=== PATIENT | female | born 1965 | race Two or more races ===

== ENCOUNTER 2024-08-28 21:47 | Inpatient (IN) | payer MEDICAID, SELFPAY ==
[2024-08-28 21:53] VITALS: PULSE 124; RESP 22; TEMP 39.4; O2SAT 90; BMI 40.6
[2024-08-28 22:15] VITALS: BP 134/81; PULSE 105; RESP 18; TEMP 38.6; O2SAT 94
--- NOTE | 2024-08-28 22:23 | PD.EDABDPN ---
ED Abdominal Pain RME/HPI General Chief Complaint: Abdominal Pain Stated complaint: ABD PAIN, CONSTIPATED Time seen by provider: 08/28/24 22:37 Arrival date/time: 08/28/24 21:47 RME / HPI RME / HPI narrative: Dr. Mcduffie?s Main ED Evaluation: 59yo female presents to the ED for complaints of lower abdominal and back pain x 1600 today. Patient states she was diagnosed with a UTI and started taking Bactrim 2 days ago. Today, she started having significant lower abdominal and back pain that got progressively worse. She reports associated subjective fever, chills, headache, nausea, and shortness of breath. Patient denies any vomiting, cough or any other associated symptoms. She did not take any antipyretics at home. Related Data Previous Rx's ?Medication ?Instructions ?Recorded levothyroxine 200 mcg capsule 200 mcg PO QDAY #30 caps 07/15/18 naproxen 500 mg tablet,delayed 500 mg PO BID PRN pain #14 tabs 03/23/22 release (EC-Naprosyn) tamsulosin 0.4 mg capsule (Flomax) 0.4 mg PO QDAY #14 caps 03/23/22 Allergies Allergy/AdvReac Type Severity Reaction Status Date / Time codeine Allergy Mild Rash Verified 08/28/24 21:48 Review of Systems Review of Systems Systems Reviewed: All systems reviewed, normal except as documented Past Medical History Past Medical History NEUROLOGIC: Negative Neurological Disorders or Seizures CARDIAC: Positive Hypertension; Negative Cardiac Disorders or Congestive Heart Failure RESPIRATORY: Positive Asthma; Negative Chronic Obstructive Pulmonary Disease (COPD) GASTROINTESTINAL: Positive Gall Bladder Disease, Diverticulitis and Obesity; Negative Gastrointestinal Disorders GENITOURINARY: Negative Genitourinary Disorders or Renal Disease REPRODUCTIVE: Positive Previous Pregnancies MUSCULOSKELETAL: Negative Musculoskeletal Disorders ENDOCRINE: Positive Hypothyroidism; Negative Diabetes Mellitus Type 1 or Diabetes Mellitus Type 2 HEMATOLOGIC: Negative Blood Disorders, Anemia or Sickle Cell Disease OTHER HISTORY: Negative Hospitalization, Falls, Blood Transfusions, Anesthesia Reactions or Cancer Family History FAMILY HISTORY: Positive Family Cancer (both parents) Surgical History SURGICAL: Positive Abdominal Surgery and Hysterectomy Social History SMOKING STATUS: Never smoker SECOND HAND EXPOSURE: No SUBSTANCE USE: does not use ED Exam Narrative Physical exam: GENERAL APPEARANCE: alert and oriented x 4, well-developed, well-nourished, no acute distress VITALS: All vitals were reviewed and the pulse ox is 94% on room air, which is slightly hypoxic according to my interpretation. HEENT: Normocephalic, atraumatic; pupils equal, round, reactive to light; EOMI; mucous membranes pink, moist; oropharynx clear NECK: Supple LUNGS: CTABL; no wheezes, no rales, no rhonchi HEART: Regular rate, regular rhythm; normal S1, S2; no murmurs ABDOMEN: non distended; normal BS; soft, no tenderness, no guarding, no rebound; no masses, no organomegaly, no hernia BACK: no CVA tenderness EXTREMITIES: atraumatic; no edema NEUROLOGIC: awake; alert and oriented x4; cranial nerves II-XII grossly intact; no focal sensory or motor deficits PSYCHIATRIC: appropriate mood and affect SKIN: warm, dry, normal color; no rashes Course Course Course Narrative: 2157: Sepsis alert initiated. Orders made at this time are congruent with ED Adult Sepsis Order List. Re-evaluation is to be completed. CXR is ordered for determining the etiology of fever. 0002: NS IVF infused. 0032: Sepsis reassessment performed consisting of lab review, vitals, physical exam including auscultation of heart, lungs, and visual evaluation of capillary refills, mucosal membranes and extremities. Patient met SIRS criteria however lactic, WBC, and pro zechariah are all within normal range. Reassessment complete, patient is not septic. Quality Measures Possible source: GI tract/intra-abdominal Blood cultures ordered: yes Antibiotic ordered: Yes Pertinent labs: 08/28/24 22:15 Lactic Acid 1.9 mMol/L (0.4-2.0) Procalcitonin 0.04 ng/ml (0.0-0.49) sepsis Orders Category Date Time Status Bedside COVID-19 Antigen Test NOW Care 08/28/24 22:37 Active Bedside Influenza A&B Antigen Test NOW Care 08/28/24 22:[address] Screening NOW Care 08/29/24 01:56 Active Senior [employer] NOW Care 08/28/24 22:37 Active EKG (ED ONLY) *Do not use* NOW Care 08/28/24 22:[address] abdomen pelvis w con Stat Exams 08/29/24 01:56 Taken EKG (ED Only) Stat Exams 08/28/24 22:37 Draft XR chest 1V portable Stat Exams 08/28/24 22:37 Completed B-Type Natriuretic Peptide Stat Lab 08/28/24 22:15 Completed Blood Culture (Lab) Stat Lab 08/28/24 23:10 Received CBC Stat Lab 08/28/24 22:15 Completed Comprehensive Metabolic Panel Stat Lab 08/28/24 22:15 Completed Lactate (Lactic Acid) Stat Lab 08/28/24 22:15 Completed Lipase Stat Lab 08/28/24 22:15 Completed Magnesium Stat Lab 08/28/24 22:15 Completed Partial Thromboplastin Time Stat Lab 08/28/24 22:15 Completed Procalcitonin Stat Lab 08/28/24 22:15 Completed Prothrombin Time with INR Stat Lab 08/28/24 22:15 Completed Troponin I Stat Lab 08/28/24 22:15 Completed Urinalysis Stat Lab 08/28/24 22:55 Completed Urine Culture Stat Lab 08/28/24 22:55 Received Acetaminophen Tab [Tylenol Tab] Med 08/28/24 22:37 Discontinued 650 mg PO X1 ONE CIPROFLOXACIN/D5w 400 MG IVPB [Cipro Ivpb] Med 08/29/24 03:08 Ordered 400 mg in 200 ml IV X1 Sodium Chloride 0.9% 1000 ml [Ns] 1,000 ml Med 08/28/24 22:37 Discontinued IV 999 mls/hr cefTRIAXone/D5w 1gm IV premix [Rocephin/D5w 1gm IV Med 08/28/24 22:42 Discontinued premix] 1 gm in 50 ml IV X1 metroNIDAZOLE/NS 500 MG IVPB [Flagyl 500 mg IV] 100 ml Med 08/29/24 03:08 Ordered IV X1 Vital Signs Vital signs: Vital Signs Temperature 103.0 F H 08/28/24 21:53 Pulse Rate 124 H 08/28/24 21:53 Respiratory Rate 22 H 08/28/24 21:53 Pulse Oximetry (%) 90 L 08/28/24 21:53 Oxygen Delivery Method Room Air 08/28/24 21:53 Abdominal Pain MDM MDM Narrative MDM Narrative:: Scribe Attestation: 08/28/24 Judy Snell am scribing for and in the presence of Dr. Mcduffie. Patient data External records reviewed:: [facility] previous records (Per chart review, patient was seen here on 03/23/22 for kidney stone. ) Clinical information provided by:: patient Social determinants that could affect healthcare access:: none Patient has the following chronic illnesses:: HTN, hypothyroidism How is presenting disease/condition affected by chronic disease/condition?: uneffected by Evaluation data The following diagnostics were reviewed and interpreted by me:: lab results, radiology exam(s) and EKG tracing(s) Lab and/or radiology exams considered but not ordered:: none Interpretation Summary: CBC normal, PT/INR/PTT normal, CMP normal, Lactic Acid normal, Magnesium normal, Troponin normal, BNP normal, Lipase normal, Procalcitonin normal,, UA negative for UTI. EKG done at 2358, NSR, rate of 91, mild IVCD, flattening ST segments in diffuse leads, poor R wave progression, according to my interpretation. [place] [facility] Report Signed Patient: MIGUEL ANGEL SHAH [facility]. Record#: [id number] Birthdate: 1965 Age/Sex: 59 / F Location: [facility] Attending Dr: Ordering Physician: Yamel Mcduffie MD Date of Service: 08/28/24 Procedure(s): XR chest 1V portable Accession Number(s): [id number] cc: Nakul Roberts MD; Yamel Mcduffie MD~ Examination: AP chest single view Technique one AP portable upright chest single view Date and time: August 28, 2024 1058 hours INDICATIONS: Chest pain shortness of breath beginning today. FINDINGS: Normal heart size. Lungs are clear. The osseous structures are intact. IMPRESSION: No active disease. Dictated By: Nakul Roberts MD Signed By: <Electronically signed by Nakul Roberts MD in OV> 08/28/24 2311 [place] Preliminary Report Draft Patient: MIGUEL ANGEL SHAH [facility]. Record#: [id number] Birthdate: 1965 Age/Sex: 59 / F Location: [facility] Attending Dr: Ordering Physician: Date of Service: Procedure(s): Accession Number(s): cc: ~ CT scan of the abdomen and pelvis with intravenous contrast (axial sections with sagittal and coronal reformats) August 29, 2024 0218 hours Clinical History: lower abdominal pain, fever Comparison: Compared with the prior study dated March 23, 2022. Findings: The lung bases are clear. The liver, pancreas, spleen and adrenals are unremarkable. The gallbladder is surgically absent. Multiple renal parapelvic cysts are seen bilaterally. There is a 1 cm parenchymal cyst ofthe left kidney. A few subcentimeter hypodensities are noted in both kidneys, too small to characterize. There is no evidence of renal/ureteric/vesical calculus or hydroureteronephrosis. Nonspecific perinephric fat stranding is noted bilaterally. A small hiatal hernia is present. There is a 1.5 cm duodenal diverticulum. No evidence of bowel obstruction. The appendix is within normal limits (image 91/142). Multiple colonic diverticula are seen. There is moderate wall thickening of the proximal sigmoid colon and pericolonic fat stranding, suggesting diverticulitis. There is no free air or abscess. Trace intraperitoneal free fluid is seen in the left paracolic gutter. There is no mesenteric or retroperitoneal adenopathy. The urinary bladder is unremarkable. The uterus is surgically absent. There is a small uncomplicated fat-containing umbilical hernia. Osseous degenerative changes are noted. Impression: 1. Moderate wall thickening of the proximal sigmoid colon with adjacent fat stranding, suggesting diverticulitis. No free air or abscess. New since the prior examination. Recommend clinical correlation and follow-up. 2. Other stable findings as described above. Report Electronically Signed By: Joon Woodson 08/29/2024 3:03:35 AM [EST Medications / Prescriptions Medications or Prescriptions considered but not ordered:: none Medication administrations:: Medication Administration History Ciprofloxacin/Dextrose (Cipro Ivpb) 400 mg in 200 mls @ 200 mls/hr IV X1 ONE Stop: 08/29/24 04:07 Metronidazole (Flagyl 500 Mg Iv) 100 mls @ 100 mls/hr IV X1 ONE Stop: 08/29/24 04:07 Discontinued Medications Acetaminophen (Acetaminophen 325 Mg Tablet) 650 mg PO X1 ONE Stop: 08/28/24 22:38 Last Admin: 08/28/24 22:55 Dose: 650 mg Documented By: YOCASTA Sodium Chloride (Ns) 1,000 mls @ 999 mls/hr IV .Q1H1M ONE Stop: 08/28/24 23:37 Last Infusion: 08/29/24 00:02 Dose: Infused Documented By: Admin: 08/28/24 22:58 Dose: 999 mls/hr Documented By: YOCASTA Ceftriaxone Sodium/Dextrose (Rocephin/D5w 1gm Iv Premix) 1 gm in 50 mls @ 100 mls/hr IV X1 ONE Stop: 08/28/24 23:11 Last Infusion: 08/28/24 23:53 Dose: Infused Documented By: Admin: 08/28/24 23:13 Dose: 100 mls/hr Documented By: SVETLANA see above Consultations Consultation(s) initiated? (list below): Yes Consultation #1 (Physician, Specialty, Details): Discussed case with the resident physician, attending Dr. Mercado from Hospitalist service regarding admission. Discussed patients ED course, exam findings, labs, and radiology results. The Hospitalist agrees to accept the patient for admission. Time: 03:09 Diagnosis Differential diagnosis abdominal pain: diverticulitis and other (pyelonephritis, kidney stone, cholelithiasis, cholecystitis) Most likely diagnosis given after review of the tests above:: see clinical impression below Admission Indicated Admission indicated?: indicated Admission Request Was there a request for admission?: Yes Admission Attestation Admission request attestation: Discussed case with [] from Hospitalist service regarding admission. Discussed patients ED course, exam findings, labs, and radiology results. The Hospitalist [agrees,declines] to accept the patient for admission. Disposition Plan Disposition Plan: Admit Critical Care Time Critical Care Time Critical Care Time: Yes Total Critical Care Time (min.): 35 Attestation: The high probability of sudden, clinically significant deterioration in the patient?s condition required the highest level of my preparedness to intervene urgently. The services I provided to this patient were to treat and/or prevent clinically significant deterioration. Services included the following: chart data review, reviewing nursing notes and/or old charts, documentation time, recruitment consultant collaboration regarding findings and treatment options, medication orders and management, direct patient care, vital sign assessments and ordering, interpreting and reviewing diagnostic studies and lab tests. Aggregate critical care time includes only time during which I was engaged in work directly related to the patient?s care, as described above, whether at bedside or elsewhere in the Emergency Department. It did not include time spent performing other reported procedures or the services of residents, students, nurses or physician assistants. Discharge Plan Plan Patient Disposition: Admit Acute Care w/in Hospital Prescriptions/Referrals Prescriptions/Med Rec: No Action levothyroxine 200 mcg capsule 200 mcg PO QDAY Qty: 30 0RF tamsulosin [Flomax] 0.4 mg capsule 0.4 mg PO QDAY Qty: 14 0RF naproxen [EC-Naprosyn] 500 mg tablet,delayed release (DR/EC) 500 mg PO BID PRN (Reason: pain) Qty: 14 0RF Referrals: Beatrice Raphael PA-C [Primary Care Provider] - In 1 week Problem List Clinical Impression: Diverticulitis, Sepsis Patient/Caregiver Discharge Instructions Print Language: Liberian Stand Alone Forms: Mely Award Info., Patient Portal Info Letter
--- NOTE | 2024-08-28 22:37 | XR_ITS ---
Examination: AP chest single view Technique one AP portable upright chest single view Date and time: August 28, 2024 1058 hours INDICATIONS: Chest pain shortness of breath beginning today. FINDINGS: Normal heart size. Lungs are clear. The osseous structures are intact. IMPRESSION: No active disease.
--- NOTE | 2024-08-28 22:37 | EKG_ITS ---
[facility] Test Date: 2024-08-28 Pat Name: MIGUEL ANGEL SHAH Department: Room: - Gender: Female [employer]: : 1965 Requested By: Yamel Polo Order Number: [id number] Reading MD: Yamel Polo Measurements Intervals [place] Rate: 91 P: -3 IN: 189 QRS: -28 QRSD: 110 T: -16 QT: 307 QTc: 378 Interpretive Statements SINUS RHYTHM MINIMAL VOLTAGE CRITERIA FOR LVH, CONSIDER NORMAL VARIANT [MEETS CRITERIA IN ONE OF: R(aVL), S(V1), R(V5), R(V5/V6)+S(V1)] POSSIBLE ANTERIOR MYOCARDIAL INFARCTION , OF INDETERMINATE AGE [30 ms Q WAVE IN V3/V4, OR R < 0.2 mV IN V4] Compared to ECG 12/05/2018 05:47:40 Myocardial infarct finding now present Sinus arrhythmia no longer present /store/S0/[id number]/ecg/[id number].pdf
[2024-08-28 22:55] VITALS: TEMP 39.1
[2024-08-28 22:55] LABS: Lactate (Lactic Acid) 1.9 mMol/L (0.4-2.0)
[2024-08-28] MEDS: ACETAMINOPHEN 325 MG TABLET 650 MG PO (22:55)
[2024-08-28] MEDS: SODIUM CHLORIDE 0.9% 1000 ML 1,000 ML 999 ML IV (22:58)
[2024-08-28 22:59] LABS: Basophils # (Auto) 0.0 Thou/mm3 (0.0-0.2); Basophils % (Auto) 0 % (0-2.5); Eosinophils # (Auto) 0.4 Thou/mm3 (0.0-0.5); Eosinophils % (Auto) 5 % (0-10); Hematocrit 40.7 % (36.0-46.0); Hemoglobin 14.0 g/dL (12.0-16.0); Immature Granulocytes Auto 0.03 Thou/mm3 (0.00-0.00); Lymphocytes # (Auto) 1.1 Thou/mm3 (1.0-4.8); Lymphocytes % (Auto) 16 % (10-50); Mean Corpuscular HGB Conc 34.4 g/dl (31.0-37.0); Mean Corpuscular Hemoglobin 32.3 pg (25.0-35.0); Mean Corpuscular Volume 94 fL (80-100); Monocytes # (Auto) 0.6 Thou/mm3 (0.0-0.8); Monocytes % (Auto) 9 % (0-12); Neutrophils # (Auto) 4.9 Thou/mm3 (1.8-7.7); Neutrophils % (Auto) 69 % (37-80); Nucleated Red Blood Cell # 0.00 Thou/mm3 (0.00-0.00); Nucleated Red Blood Cell % 0 /100 WBC (0); Platelet Count 187 Thou/mm3 (140-440); RDW Standard Deviation 49.5 fL (36.4-46.3); Red Blood Count 4.33 Miln/mm3 (4.00-5.20); White Blood Count 7.1 Thou/mm3 (3.6-11.0)
[2024-08-28 23:03] LABS: Collection Type, Urine Clean Catch
[2024-08-28 23:06] LABS: Bilirubin,Urine Negative (Negative); Blood,Urine Negative (Negative); Clarity,Urine Clear (Clear/Hazy); Color,Urine Yellow (Lt Yel-Yel); Glucose, Urine Negative (Negative); Ketones,Urine Negative (Negative); Leukocyte Esterase,Urine Positive (Negative); Nitrite,Urine Negative (Negative); PH,Urine 6.5 (5.0-7.0); Protein,Urine Negative (Neg - Trace); RBC,Urine 1 /hpf (0-3); Specific Gravity,Urine 1.020 (1.001-1.035); Squamous Epithelial Cell,Urine 5 /hpf (0-5); Urobilinogen,Urine Negative mg/dL (0.0-1.0); WBC,Urine 8 /hpf (0-5)
[2024-08-28] MEDS: cefTRIAXone/D5w 1gm IV premix 1 GM/50 ML BAG IV (23:13)
[2024-08-28 23:16] LABS: INR 1.0 (0.9-1.3); Partial Thromboplastin Time 30.6 Seconds (22.0-36.0); Prothrombin Time 11.4 Seconds (9.0-12.2)
[2024-08-28 23:26] LABS: Alanine Aminotransferase 16 U/L (10-49); Albumin, Serum 4.7 gm/dL (3.5-5.0); Albumin/Globulin Ratio 1.6 (1.2-2.2); Alkaline Phosphatase 99 U/L (46-116); Anion Gap 14 (7-16); Aspartate Amino Transferase 22 U/L (0-34); BUN/Creatinine Ratio 9 Ratio (12-20); Bilirubin,Total 0.7 mg/dL (0.3-1.2); Blood Urea Nitrogen 12 mg/dL (9-23); Calcium 10.0 mg/dL (8.3-10.6); Calcium (Corrected) 10.0 mg/dL (8.5-10.1); Carbon Dioxide 24.3 mMol/L (20.0-31.0); Chloride 101 mMol/L (98-107); Creatinine (Component) 1.3 mg/dL (0.6-1.3); Estimated Creatinine Clearance 66.7 mL/min (>60); Globulin 2.9 gm/dL (2.3-3.5); Glucose 118 mg/dL (74-106); Lipase 44 U/L (12-53); Magnesium 1.9 mg/dL (1.6-2.6); Osmolality,Calculated 278 (275-295); Potassium 3.7 mMol/L (3.4-5.1); Procalcitonin 0.04 ng/ml (0.0-0.49); Sodium 139 mMol/L (136-145); Total Protein 7.6 gm/dL (5.7-8.2); Troponin I < 0.002 ng/mL (0.0-0.045); eGFR 48 See Note
[2024-08-28 23:32] LABS: B-Type Natriuretic Peptide < 20 pg/mL (0-100)
[2024-08-28 23:54] VITALS: TEMP 37.7
[2024-08-29] VITALS (77 sets, daily range): BP systolic 95–126; BP diastolic 52–91; PULSE 72–108; RESP 16–27; TEMP 36.3–37.6; O2SAT 88–99; BMI 40.6
--- NOTE | 2024-08-29 01:56 | XR_ITS ---
Examination: CT abdomen with intravenous contrast CT pelvis with intravenous contrast 2-D coronal reconstructions 2-D sagittal reconstructions Date and time of exam:August 29, 2024, at 0218 hours Comparison March 23, 2022 INDICATIONS: Lower abdominal pain and constipation onset today., History kidney stones CTDI: vol (mGy) 26.6 DLP: (mGycm) 1605 Technique: Multiple axial sections of the abdomen and pelvis have been obtained. 64 slice high-resolution scanner used. 3 mm axial sections have been obtained, post intravenous injection 60 cc Isovue 370 2-D sagittal, coronal reconstructions obtained. Low dose protocols were performed. One or more of the following dose reduction techniques were used; automated exposure control, adjustment of the mA and/or KV according to patient size, use of iterative reconstruction technique. Findings: AP dimension ascending thoracic aorta 5.0 cm No focal liver or splenic lesions Absent gallbladder No extrahepatic biliary tract dilatation. No pancreatic or adrenal mass Small bilateral parapelvic cysts No hydronephrosis or ureteral calculi. Aorta normal size No CT findings of appendicitis Colonic diverticulosis Acute diverticulitis involving distal descending colon and proximal rectosigmoid No peridiverticular abscess Urinary bladder intact IMPRESSION: AP dimension ascending thoracic aorta 5.0 cm, consider elective CTA chest postcontrast follow-up Acute diverticulitis distal descending colon or proximal rectosigmoid, no peridiverticular abscess
--- NOTE | 2024-08-29 03:03 | PRELIM_ITS ---
CT scan of the abdomen and pelvis with intravenous contrast (axial sections with sagittal and coronal reformats) August 29, 2024 0218 hours Clinical History: lower abdominal pain, fever Comparison: Compared with the prior study dated March 23, 2022. Findings: The lung bases are clear. The liver, pancreas, spleen and adrenals are unremarkable. The gallbladder is surgically absent. Multiple renal parapelvic cysts are seen bilaterally. There is a 1 cm parenchymal cyst ofthe left kidney. A few subcentimeter hypodensities are noted in both kidneys, too small to characterize. There is no evidence of renal/ureteric/vesical calculus or hydroureteronephrosis. Nonspecific perinephric fat stranding is noted bilaterally. A small hiatal hernia is present. There is a 1.5 cm duodenal diverticulum. No evidence of bowel obstruction. The appendix is within normal limits (image 91/142). Multiple colonic diverticula are seen. There is moderate wall thickening of the proximal sigmoid colon and pericolonic fat stranding, suggest ing diverticulitis. There is no free air or abscess. Trace intraperitoneal free fluid is seen in the left paracolic gutter. There is no mesenteric or retroperitoneal adenopathy. The urinary bladder is unremarkable. The uterus is surgically absent. There is a small uncomplicated fat-containing umbilical hernia. Osseous degenerative changes are noted. Impression: 1. Moderate wall thickening of the proximal sigmoid colon with adjacent fat stranding, suggesting diverticulitis. No free air or abscess. New since the prior examination. Recommend clinical correlation and follow-up. 2. Other stable findings as described above. Report Electronically Signed By: Joon Woodson 08/29/2024 3:03:35 AM [EST]
[2024-08-29] MEDS: CIPROFLOXACIN/D5w 400 MG IVPB 400 MG/200 ML BAG 200 MG IV ×3 (03:20→20:17)
[2024-08-29] MEDS: metroNIDAZOLE/NS 500 MG IVPB 500 MG/100 ML BAG 100 MG IV (03:22)
--- NOTE | 2024-08-29 03:52 | ESHP_ITS ---
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 The patient reported that approximately one week ago, she had her annual check- up with her primary care physician, during which a urine culture was obtained. The culture grew E. coli, and she was prescribed Bactrim. However, she noted that she was asymptomatic at the time, with no urinary symptoms, and is unsure why the urine culture was ordered. Yesterday evening, she developed sudden onset of severe lower abdominal pain, radiating to her back, associated with severe nausea, chills, and fever. Patient denies any chest pain, shortness of breath, palpitation, any blood in the stool. However stated that recently she started on Zepbound for weight loss, received 2 shot and stated that she is having constipation as a side effect Zepbound. Due to the worsening symptoms, she presented to the ED for further evaluation. ED Course: On presentation, the patient was: Tachycardic (HR: 124 bpm) Tachypneic (RR: 22 breaths/min)Febrile (T: 103?F) Hypoxic (SpO: 90% on room air) Laboratory evaluation revealed: Benign labs overall Normal white blood cell count Normal lactic acid and procalcitonin levels Urinalysis: Positive leukocyte esterase Negative nitrites and bacteria Minimally elevated WBCs in urine Imaging: CT abdomen and pelvis demonstrated: Moderate wall thickening of the proximal sigmoid colon with surrounding fat stranding, consistent with diverticulitis. No free air or abscess was noted. These findings are new compared to the prior imaging. In the ED, the patient was treated with IV fluids and empiric antibiotics. She met SIRS criteria and was admitted for inpatient management of acute diverticulitis. Past medical history Eric thyroiditis on levothyroxine Past surgical history hysterectomy, cholecystectomy Medication levothyroxine, and recently prescribed Bactrim Social history patient lives alone and is independent her ADL, denies smoking and drinking Family history unremarkable. Review of Systems Review of Systems Systems Reviewed: All systems reviewed, normal except as documented Exam Vital Signs Temp Pulse Resp BP Pulse Ox O2 Del Method 99.6 F 86 19 126/75 92 L Room Air 08/29/24 01:58 08/29/24 01:58 08/29/24 01:58 08/29/24 01:58 08/29/24 01:58 08/29/24 01:58 Narrative Exam GENERAL: no acute distress, AAO x3, well nourished. HEENT: Head AT/ NC. Mucous membranes moist. PERRL. NECK: Supple, no lymphadenopathy, no carotid bruits. CARDIOVASCULAR: RRR. Normal S1/S2, No m/r/g. No pitting edema of bilateral LEs. RESPIRATORY: CTAB. No wheezing, rhonchi, crackles. GASTROINTESTINAL: Abdomen soft, mild tenderness on bilateral lower quadrants. No palpable masses. Bowel sounds present in all 4 quadrants. MUSCULOSKELETAL:? No cyanosis or edema, no visible joint swelling. NEUROLOGICAL: CN II-XII grossly intact. No focal deficits. Sensation intact, symmetric. PSYCHIATRIC: Awake and alert, not agitated, normal mood and affect. INTEGUMENTARY: No obvious rashes, no jaundice, normal turgor. Results: Labs 08/28/24 22:15 08/28/24 22:15 Labs: Short CBC 08/28/24 Range/Units 22:15 WBC 7.1 (3.6-11.0) Thou/mm3 Hgb 14.0 (12.0-16.0) g/dL Hct 40.7 (36.0-46.0) % Plt Count 187 (140-440) Thou/mm3 BMP 08/28/24 22:15 Sodium 139 Potassium 3.7 Chloride 101 Carbon Dioxide 24.3 BUN 12 Creatinine 1.3 Glucose 118 H Calcium 10.0 Cardiac Enzymes 08/28/24 Range/Units 22:15 Troponin I < 0.002 (0.0-0.045) ng/mL Liver Function 08/28/24 Range/Units 22:15 Total Bilirubin 0.7 (0.3-1.2) mg/dL AST 22 (0-34) U/L ALT 16 (10-49) U/L Alkaline Phosphatase 99 (46-116) U/L Albumin 4.7 (3.5-5.0) gm/dL Urine 08/28/24 Range/Units 22:55 Urine Color Yellow (Lt Yel-Yel) Urine Clarity Clear (Clear/Hazy) Urine pH 6.5 (5.0-7.0) Ur Specific [place] 1.020 (1.001-1.035) Urine Protein Negative (Neg - Trace) Urine Glucose (UA) Negative (Negative) Quality Measures Quality Measures sepsis Current suspected stage: ruled out Possible source: GI tract/intra- abdominal Blood cultures ordered: yes Antibiotic ordered: Yes Medications Home Medications and Allergies Allergies Allergy/AdvReac Type Severity Reaction Status Date / Time codeine Allergy Mild Rash Verified 08/28/24 21:48 Visit Medications Acetaminophen (Acetaminophen 325 Mg Tablet) 650 mg PO Q6H PRN PRN Reason: PAIN OR FEVER > 101 Stop: 09/28/24 03:42 Enoxaparin Sodium (Enoxaparin Sod Inj 40 Mg/0.4 Ml Syringe) 40 mg SC QDAY [facility] Stop: 09/12/24 08:59 Ciprofloxacin/Dextrose (Cipro Ivpb) 400 mg in 200 mls @ 200 mls/hr IV X1 ONE Stop: 08/29/24 04:07 Last Admin: 08/29/24 03:20 Dose: 200 mls/hr Metronidazole (Flagyl 500 Mg Iv) 500 mg in 100 mls @ 100 mls/hr IV X1 ONE Stop: 08/29/24 04:07 Last Admin: 08/29/24 03:22 Dose: 100 mls/hr Lactated Ringer's (Lactated Ringers) 1,000 mls @ 75 mls/hr IV .[id number] [facility] Stop: 09/28/24 03:44 Ciprofloxacin/Dextrose (Cipro Ivpb) 400 mg in 200 mls @ 200 mls/hr IV Q12HR [facility] Stop: 09/05/24 11:59 Metronidazole (Flagyl 500 Mg Iv) 500 mg in 100 mls @ 200 mls/hr IV Q8HR [facility] Stop: 09/05/24 11:59 Ondansetron HCl (Ondansetron Inj 2 Mg/Ml Inj 2 Ml) 4 mg IVP Q6H PRN; Protocol PRN Reason: NAUSEA OR VOMITING Stop: 09/28/24 03:42 Pantoprazole Sodium (Pantoprazole Inj 40 Mg Vial) 40 mg IVP QDAY [facility] Stop: 09/28/24 08:59 Discontinued Medications Acetaminophen (Acetaminophen 325 Mg Tablet) 650 mg PO X1 ONE Stop: 08/28/24 22:38 Last Admin: 08/28/24 22:55 Dose: 650 mg Sodium Chloride (Ns) 1,000 mls @ 999 mls/hr IV .Q1H1M ONE Stop: 08/28/24 23:37 Last Infusion: 08/29/24 00:02 Dose: Infused Ceftriaxone Sodium/Dextrose (Rocephin/D5w 1gm Iv Premix) 1 gm in 50 mls @ 100 mls/hr IV X1 ONE Stop: 08/28/24 23:11 Last Infusion: 08/28/24 23:53 Dose: Infused Assessment & Plan Plan 59-year-old female with past medical history of Eric thyroiditis, history of previous diverticulitis was admitted for acute diverticulitis treatment at [facility]. #Acute uncomplicated diverticulitis #Abdominal pain due to above CC of abd pain, nausea, vomiting CT: Sigmoid colon wall thickening with surrounding fat stranding; no abscess or free air Started on IV fluids and empiric IV antibiotics in ED -Continue with IV antibiotics(ciprofloxacin and metronidazole IV) -Transition to oral antibiotics when clinically improved -Monitor for signs of complications such as abscess, perforation, or obstruction -Bowel rest, keep n.p.o., advance diet as tolerates -Consider GI consultation if symptoms no improvement #SIRS secondary to diverticulitis Patient met SIRS criteria, tachycardic, tachypneic, febrile, with confirmed infection source, however so far not enough evidence to meet full sepsis definition. There is no evidence of SOFA >=2, so sepsis cannot be confirmed by SOFA criteria with current information. Also the patient met SIRS criteria and had a clear infection source, there is insufficient information to confirm sepsis under sepsis-3 guidelines which requires a sofa score increase of >=2, -Monitor vital signs, urine output, saturation -Reassess if any signs of deterioration #History of E. coli bacteriuria(asymptomatic) Treated with Bactrim per PCP as outpatient had no urinary symptoms UA in ED positive leukocyte esterase, no nitrites or bacteriuria, mildly elevated WBC Likely not contributory to current illness, no evidence of UTI or pyelonephritis -Monitor symptoms -Patient is already covered with IV antibiotics -Follow urine culture #Eric thyroiditis On levothyroxine, no thyroid related symptoms reported -Follow-up with TSH, free T4, continue home dose, med rec is pending #Bilateral renal parapelvic and parenchymal cysts?incidental findings no hydronephrosis or calculi, no need for acute intervention, outpatient follow-up with PCP or nephrology if clinically indicated #Perinephric fat stranding?likely reactive no signs of infection or obstruction, will monitor renal function #Hiatal and umbilical hernia-both small and uncomplicated, plan to monitor, surgical follow-up if symptomatic All findings are on preliminary CT scan Disposition: Matthew, was admitted for acute uncomplicated diverticulitis treatment DVT prophylaxis: Lovenox GI prophylaxis: PPI Diet: N.p.o. Lines: PIV CODE STATUS:Full code Patient care was discussed with attending physician Dr. Jess Alfred MD PGY- Attending Provider Attestation/Addendum Patient seen and evaluated in the ED after examination of the patient and review of the clinical data I feel that this patient needs admission to the hospital for further treatment/evaluation. I have discussed and was present for the essential components of the history, physical examination, diagnosis, and treatment plan with the resident. I agree with the patient's care as documented by the resident and amended herein by me. Marvel Mercado DO. Although this document has been carefully reviewed, there may still be some phonetic and other typographical errors. These errors are purely grammatical due to imperfections in the software program and should not be construed in any way to compromise the substance of the patient's medical care during this visit. Patient seen and evaluated in the ED. Patient is a 59-year-old female with significant past medical history of diverticulitis, anal hemorrhage, Eric's thyroiditis, laparoscopic cholecystectomy, appendectomy, hysterectomy who presented to the ED for severe lower abdominal pain and back pain since approximately 4:00 today. Patient also endorsed recently being treated with Bactrim 2 days ago with a culture drawn at her PCP which grew E. coli. Patient however endorsed she has been asymptomatic as far as urinary symptoms are concerned. Patient subsequently admitted for acute diverticulitis possible UTI In the ED, patient was normotensive, Tmax was 103, patient on room air, SpO2 92%, CBC unremarkable, CMP unremarkable, Pro-Brandon negative, UA was positive but as stated above, patient relatively asymptomatic urinary tract ivory. Chest x- ray clear, EKG NSR, CTAP demonstrating thickened [place] of the sigmoid colon and diverticulitis however no peridiverticular abscess visualized. Patient was given ceftriaxone and fluids in the ED Patient will be admitted to [facility] for acute diverticulitis, patient will be started on ciprofloxacin and Flagyl for now. Patient made n.p.o., can likely start advancing diet in the next day or so if the patient can tolerate, blood and urine cultures drawn in the ED and pending. Patient is stable at present
[2024-08-29] MEDS: RINGERS LACTATED 1000 ML 1,000 ML 75 ML IV ×2 (03:59→17:10)
[2024-08-29 06:21] LABS: Basophils # (Auto) 0.0 Thou/mm3 (0.0-0.2); Basophils % (Auto) 0 % (0-2.5); Eosinophils # (Auto) 0.3 Thou/mm3 (0.0-0.5); Eosinophils % (Auto) 5 % (0-10); Hematocrit 38.8 % (36.0-46.0); Hemoglobin 12.9 g/dL (12.0-16.0); Immature Granulocytes Auto 0.01 Thou/mm3 (0.00-0.00); Lymphocytes # (Auto) 0.7 Thou/mm3 (1.0-4.8); Lymphocytes % (Auto) 12 % (10-50); Mean Corpuscular HGB Conc 33.2 g/dl (31.0-37.0); Mean Corpuscular Hemoglobin 32.7 pg (25.0-35.0); Mean Corpuscular Volume 99 fL (80-100); Monocytes # (Auto) 0.7 Thou/mm3 (0.0-0.8); Monocytes % (Auto) 12 % (0-12); Neutrophils # (Auto) 3.9 Thou/mm3 (1.8-7.7); Neutrophils % (Auto) 71 % (37-80); Nucleated Red Blood Cell # 0.00 Thou/mm3 (0.00-0.00); Nucleated Red Blood Cell % 0 /100 WBC (0); Platelet Count 163 Thou/mm3 (140-440); RDW Standard Deviation 51.6 fL (36.4-46.3); Red Blood Count 3.94 Miln/mm3 (4.00-5.20); White Blood Count 5.5 Thou/mm3 (3.6-11.0)
[2024-08-29 07:10] LABS: Alanine Aminotransferase 14 U/L (10-49); Albumin, Serum 4.1 gm/dL (3.5-5.0); Albumin/Globulin Ratio 1.5 (1.2-2.2); Alkaline Phosphatase 83 U/L (46-116); Anion Gap 10 (7-16); Aspartate Amino Transferase 21 U/L (0-34); BUN/Creatinine Ratio 7 Ratio (12-20); Bilirubin,Total 0.7 mg/dL (0.3-1.2); Blood Urea Nitrogen 8 mg/dL (9-23); Calcium 8.9 mg/dL (8.3-10.6); Calcium (Corrected) 8.9 mg/dL (8.5-10.1); Carbon Dioxide 27.3 mMol/L (20.0-31.0); Cardiac Risk Estimate 3.5 RATIO (3.7-5.6); Chloride 104 mMol/L (98-107); Cholesterol 216 mg/dL (132-200); Creatinine (Component) 1.2 mg/dL (0.6-1.3); Estimated Creatinine Clearance 72.3 mL/min (>60); Free T4 (Free Thyroxine) 0.55 ng/dL (0.89-1.76); Globulin 2.7 gm/dL (2.3-3.5); Glucose 95 mg/dL (74-106); HDL Cholesterol 62 mg/dL (40-60); LDL Cholesterol,Calculated 138 mg/dL (0-130); Magnesium 1.8 mg/dL (1.6-2.6); Osmolality,Calculated 279 (275-295); Phosphorous 2.8 mg/dL (2.4-5.1); Potassium 3.6 mMol/L (3.4-5.1); Sodium 141 mMol/L (136-145); Thyroid Stimulating Hormone 94.35 uIU/mL (0.55-4.78); Total Protein 6.8 gm/dL (5.7-8.2); Triglycerides 78 mg/dL (30-150); eGFR 52 See Note
[2024-08-29] MEDS: ACETAMINOPHEN 325 MG TABLET 650 MG PO ×2 (09:22→19:15)
[2024-08-29] MEDS: ENOXAPARIN SOD INJ 40 MG/0.4 ML SYRINGE SC (09:23)
[2024-08-29] MEDS: ONDANSETRON INJ 2 MG/ML INJ 2 ML 4 MG IVP (09:25)
[2024-08-29] MEDS: metroNIDAZOLE/NS 500 MG IVPB 500 MG/100 ML BAG 200 MG IV ×2 (13:40→21:23)
--- NOTE | 2024-08-29 14:08 | PD.RESPRO ---
Documentation for date of: 08/29/24 Subjective Subjective Interval history: Patient examined at bedside today. No acute overnight events. Patient feels a lot better today not complaining worsening of abdominal pain. Patient denies shortness of breath, chest pain, nausea, vomiting. Exam Vital Signs Temp Pulse Resp BP Pulse Ox O2 Del Method O2 Flow Rate 99.1 F 79 18 103/67 91 L Nasal Cannula 4 08/29/24 10:28 08/29/24 12:00 08/29/24 12:00 08/29/24 12:00 08/29/24 12:00 08/29/24 10:28 08/29/24 10:28 Narrative Exam GENERAL: no acute distress, AAO x3, well nourished. HEENT: Head AT/ NC. Mucous membranes moist. PERRL. NECK: Supple, no lymphadenopathy, no carotid bruits. CARDIOVASCULAR: RRR. Normal S1/S2, No m/r/g. No pitting edema of bilateral LEs. RESPIRATORY: CTAB. No wheezing, rhonchi, crackles. GASTROINTESTINAL: Abdomen soft, mild tenderness on bilateral lower quadrants. No palpable masses. Bowel sounds present in all 4 quadrants. PSYCHIATRIC: Awake and alert, not agitated, normal mood and affect. Objective Labs 08/30/24 05:40 08/30/24 05:40 Labs: Laboratory Results - last 24 hr 08/28/24 08/28/24 08/29/24 22:15 22:55 04:46 WBC 7.1 5.5 RBC 4.33 3.94 L Hgb 14.0 12.9 Hct 40.7 38.8 MCV 94 99 MCH 32.3 32.7 MCHC 34.4 33.2 RDW Std Deviation 49.5 H 51.6 H Plt Count 187 163 Neut % (Auto) 69 71 Lymph % (Auto) 16 12 [place] % (Auto) 9 12 Eos % (Auto) 5 5 Baso % (Auto) 0 0 Neut # (Auto) 4.9 3.9 Lymph # (Auto) 1.1 0.7 L [place] # (Auto) 0.6 0.7 Eos # (Auto) 0.4 0.3 Baso # (Auto) 0.0 0.0 Immature Gran # (Auto) 0.03 H 0.01 H Absolute Nucleated RBC 0.00 0.00 Immature Gran % 0 0 Nucleated RBC % 0 0 PT 11.4 INR 1.0 APTT 30.6 Sodium 139 141 Potassium 3.7 3.6 Chloride 101 104 Carbon Dioxide 24.3 27.3 Anion Gap 14 10 BUN 12 8 L Creatinine 1.3 1.2 Estim Creat Clear Calc 66.7 72.3 eGFR 48 L 52 L BUN/Creatinine Ratio 9 L 7 L Glucose 118 H 95 Calculated Osmolality 278 279 Lactic Acid 1.9 Calcium 10.0 8.9 Corrected Calcium 10.0 8.9 Phosphorus 2.8 Magnesium 1.9 1.8 Total Bilirubin 0.7 0.7 AST 22 21 ALT 16 14 Alkaline Phosphatase 99 83 Troponin I < 0.002 B-Natriuretic Peptide < 20 Total Protein 7.6 6.8 Albumin 4.7 4.1 D Globulin 2.9 2.7 Albumin/Globulin Ratio 1.6 1.5 Triglycerides 78 Cholesterol 216 H LDL Cholesterol, Calc 138 H HDL Cholesterol 62 H Cholesterol/HDL Ratio 3.5 L Lipase 44 Procalcitonin 0.04 TSH 94.35 H* Free T4 0.55 L Ur Collection Type Clean Catch Urine Color Yellow Urine Clarity Clear Urine pH 6.5 Ur Specific [place] 1.020 Urine Protein Negative Urine Glucose (UA) Negative Urine Ketones Negative Urine Blood Negative Urine Nitrite Negative Urine Bilirubin Negative Urine Urobilinogen (Auto) Negative Ur Leukocyte Esterase Positive Urine RBC 1 Urine WBC 8 H Ur Squamous Epith Cells 5 Urine Bacteria None Quality Measures Quality Measures sepsis Current suspected stage: ruled out Possible source: GI tract/intra-abdominal Blood cultures ordered: yes Antibiotic ordered: Yes Assessment & Plan Assessment Current Active Medications: Generic Name Dose Route Start Last Admin Trade Name Freq PRN Reason Stop Dose Admin Acetaminophen 650 mg 08/29/24 03:43 08/29/24 09:22 Acetaminophen 325 Mg Tablet PO 09/28/24 03:42 650 mg Q6H PRN Administration PAIN OR FEVER > 101 Enoxaparin Sodium 40 mg 08/29/24 09:00 08/29/24 09:23 Enoxaparin Sod Inj 40 Mg/0.4 Ml Syringe SC 09/12/24 08:59 40 mg QDAY MEG Administration Lactated Ringer's 1,000 mls @ 75 mls/hr 08/29/24 03:45 08/29/24 03:59 Lactated Ringers IV 09/28/24 03:44 75 mls/hr .[id number] MEG Administration Ciprofloxacin/Dextrose 400 mg in 200 mls @ 200 mls/hr 08/29/24 12:00 08/29/24 13:41 Cipro Ivpb IV 09/05/24 11:59 200 mls/hr Q12HR MEG Administration Metronidazole 500 mg in 100 mls @ 200 mls/hr 08/29/24 12:00 08/29/24 13:40 Flagyl 500 Mg Iv IV 09/05/24 11:59 200 mls/hr Q8HR MEG Administration Levothyroxine Sodium 200 mcg 08/30/24 06:00 Levothyroxine Sodium 100 Mcg Tablet PO 09/29/24 05:59 ACBR MEG Ondansetron HCl 4 mg 08/29/24 03:43 08/29/24 09:25 Ondansetron Inj 2 Mg/Ml Inj 2 Ml IVP 09/28/24 03:42 4 mg Q6H PRN Administration NAUSEA OR VOMITING Protocol Pantoprazole Sodium 40 mg 08/29/24 09:00 08/29/24 09:25 Pantoprazole Inj 40 Mg Vial IVP 09/28/24 08:59 40 mg QDAY MEG Administration Plan Assessment 59-year-old female with past medical history of Eric thyroiditis, history of previous diverticulitis was admitted for acute diverticulitis treatment at [facility]. #Acute uncomplicated diverticulitis #Abdominal pain due to above CC of abd pain, nausea, vomiting CT: Sigmoid colon wall thickening with surrounding fat stranding; no abscess or free air Started on IV fluids and empiric IV antibiotics in ED Plan -Continue with IV antibiotics (ciprofloxacin and metronidazole IV) -Transition to oral antibiotics when clinically improved -Monitor for signs of complications such as abscess, perforation, or obstruction -Bowel rest, keep n.p.o., advance diet as tolerates #History of E. coli bacteriuria(asymptomatic) Treated with Bactrim per PCP as outpatient had no urinary symptoms UA in ED positive leukocyte esterase, no nitrites or bacteriuria, mildly elevated WBC Likely not contributory to current illness, no evidence of UTI or pyelonephritis Plan -Monitor symptoms -Patient is already covered with IV antibiotics -Follow urine culture #Eric thyroiditis On levothyroxine, no thyroid related symptoms reported Patient reports stopping levothyroxine every now and then when taking antibiotics due to concerns of drug interaction Patient last took levothyroxine on August 18 TSH 94.35, free T40.55 Plan ?Patient's levothyroxine home dosing to resume tomorrow a.m. ?Patient's home dosing is 250 mcg every other day and 275 mcg every other day ? Patient counseled on importance of taking thyroid medication regularly and to check with physician if medication needs to be held for what ever reason #Thoracic aorta dilation CT abdomen 08/29/2024 showed ascending thoracic aorta 5.0 cm Patient made aware of the findings Recommended patient to f/u with vacular surgery outpatient #Bilateral renal parapelvic and parenchymal cysts?incidental findings no hydronephrosis or calculi, no need for acute intervention, outpatient follow-up with PCP or nephrology if clinically indicated #Perinephric fat stranding?likely reactive no signs of infection or obstruction, will monitor renal function #Hiatal and umbilical hernia-both small and uncomplicated, plan to monitor, surgical follow-up if symptomatic All findings are on preliminary CT scan Health Maintenance: DVT prophylaxis: Lovenox GI prophylaxis: PPI Diet: N.p.o. Lines: PIV CODE STATUS:Full code Case discussed with my attending Dr. Levon Lucas MD PGY-1 Attending Provider Attestation/Addendum I have examined the patient, reviewed labs and imaging findings, discussed the case with the resident(s), and reviewed entered orders. I agree with the plan of care as outlined in this note, with these additional summaries/recommendations: Patient seen at bedside. No acute overnight events. Patient reports some improvement in abdominal pain since admission. She reports she has been hospitalized 3 times before for acute diverticulitis. We will continue IV Cipro and Flagyl for acute diverticulitis. No abscess noted. Likely mild to moderate in nature. Continue pain management and bowel rest. 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 She stopped taking levothyroxine approximately 1 month ago. On admission TSH 94.35 and free T4 0.55. No evidence of myxedema coma. Resume home levothyroxine and patient counseled extensively on the importance of taking in the morning without other medications or food. Patient also found to have ascending thoracic aorta of 5.0 cm. Advised patient she should follow-up with outpatient vascular for further monitoring and management. Patient updated on the plan and in agreement. All questions answered to satisfaction. Please see residents note for additional details and management. Dr. Levon MD
[2024-08-30] VITALS (7 sets, daily range): BP systolic 84–100; BP diastolic 48–63; PULSE 72–91; RESP 16–89; TEMP 37.2–37.4; O2SAT 91–98
[2024-08-30] MEDS: LEVOTHYROXINE SODIUM 100 MCG TABLET 200 MCG PO (05:05)
[2024-08-30] MEDS: metroNIDAZOLE/NS 500 MG IVPB 500 MG/100 ML BAG 200 MG IV ×3 (05:05→22:08)
[2024-08-30] MEDS: ACETAMINOPHEN 325 MG TABLET 650 MG PO (05:12)
[2024-08-30] MEDS: RINGERS LACTATED 1000 ML 1,000 ML 75 ML IV ×2 (06:01→20:50)
[2024-08-30] MEDS: LEVOTHYROXINE SODIUM 25 MCG TABLET 50 MCG PO (06:01)
[2024-08-30 06:28] LABS: Basophils # (Auto) 0.0 Thou/mm3 (0.0-0.2); Basophils % (Auto) 0 % (0-2.5); Eosinophils # (Auto) 0.3 Thou/mm3 (0.0-0.5); Eosinophils % (Auto) 5 % (0-10); Hematocrit 35.4 % (36.0-46.0); Hemoglobin 11.7 g/dL (12.0-16.0); Immature Granulocytes Auto 0.01 Thou/mm3 (0.00-0.00); Lymphocytes # (Auto) 1.0 Thou/mm3 (1.0-4.8); Lymphocytes % (Auto) 21 % (10-50); Mean Corpuscular HGB Conc 33.1 g/dl (31.0-37.0); Mean Corpuscular Hemoglobin 32.8 pg (25.0-35.0); Mean Corpuscular Volume 99 fL (80-100); Monocytes # (Auto) 0.7 Thou/mm3 (0.0-0.8); Monocytes % (Auto) 15 % (0-12); Neutrophils # (Auto) 2.9 Thou/mm3 (1.8-7.7); Neutrophils % (Auto) 59 % (37-80); Nucleated Red Blood Cell # 0.00 Thou/mm3 (0.00-0.00); Nucleated Red Blood Cell % 0 /100 WBC (0); Platelet Count 130 Thou/mm3 (140-440); RDW Standard Deviation 51.9 fL (36.4-46.3); Red Blood Count 3.57 Miln/mm3 (4.00-5.20); White Blood Count 5.0 Thou/mm3 (3.6-11.0)
[2024-08-30 06:34] LABS: INR 1.1 (0.9-1.3); Partial Thromboplastin Time 33.1 Seconds (22.0-36.0); Prothrombin Time 12.0 Seconds (9.0-12.2)
[2024-08-30 06:46] LABS: Alanine Aminotransferase 15 U/L (10-49); Albumin, Serum 3.9 gm/dL (3.5-5.0); Albumin/Globulin Ratio 1.6 (1.2-2.2); Alkaline Phosphatase 73 U/L (46-116); Anion Gap 10 (7-16); Aspartate Amino Transferase 24 U/L (0-34); BUN/Creatinine Ratio 6 Ratio (12-20); Bilirubin,Total 0.7 mg/dL (0.3-1.2); Blood Urea Nitrogen 7 mg/dL (9-23); Calcium 8.6 mg/dL (8.3-10.6); Calcium (Corrected) 8.7 mg/dL (8.5-10.1); Carbon Dioxide 25.0 mMol/L (20.0-31.0); Chloride 105 mMol/L (98-107); Creatinine (Component) 1.1 mg/dL (0.6-1.3); Estimated Creatinine Clearance 78.8 mL/min (>60); Globulin 2.5 gm/dL (2.3-3.5); Glucose 99 mg/dL (74-106); Magnesium 1.9 mg/dL (1.6-2.6); Osmolality,Calculated 277 (275-295); Phosphorous 2.9 mg/dL (2.4-5.1); Potassium 3.7 mMol/L (3.4-5.1); Sodium 140 mMol/L (136-145); Total Protein 6.4 gm/dL (5.7-8.2); eGFR 58 See Note
[2024-08-30] MEDS: SODIUM CHLORIDE 0.9% 250 ML 250 ML 999 ML IV (09:43)
[2024-08-30] MEDS: CIPROFLOXACIN/D5w 400 MG IVPB 400 MG/200 ML BAG 200 MG IV ×2 (09:43→20:36)
--- NOTE | 2024-08-30 12:58 | ESPR_ITS ---
Documentation for date of: 08/30/24 Subjective Subjective Interval history: Patient seen at bedside today. No acute overnight events. Patient has been having persistent headache, she normally takes acetaminophen?caffeine pills to help with the headaches at home, patient also has not been eating so likely related. Patient has been complaining of bilateral ear pain, no ringing in ears, no hearing loss, no discharge, no dizziness. Exam Vital Signs Temp Pulse Resp BP Pulse Ox O2 Del Method O2 Flow Rate 98.9 F 76 18 95/55 L 91 L Nasal Cannula 2 08/30/24 12:00 08/30/24 12:00 08/30/24 12:00 08/30/24 12:00 08/30/24 12:00 08/30/24 12:00 08/30/24 12:00 Narrative Exam GENERAL: no acute distress, AAO x3, well nourished. HEENT: Head AT/ NC. Tympanic membrane patent. Mucous membranes moist. PERRL. NECK: Supple, no lymphadenopathy, no carotid bruits. CARDIOVASCULAR: RRR. Normal S1/S2, No m/r/g. No pitting edema of bilateral LEs. RESPIRATORY: CTAB. No wheezing, rhonchi, crackles. GASTROINTESTINAL: Abdomen soft, mild tenderness on bilateral lower quadrants. No palpable masses. Bowel sounds present in all 4 quadrants. PSYCHIATRIC: Awake and alert, not agitated, normal mood and affect. Objective Labs 08/31/24 04:59 08/31/24 04:59 Labs: Laboratory Results - last 24 hr 08/30/24 05:40 WBC 5.0 RBC 3.57 L Hgb 11.7 L Hct 35.4 L MCV 99 MCH 32.8 MCHC 33.1 RDW Std Deviation 51.9 H Plt Count 130 L D Neut % (Auto) 59 Lymph % (Auto) 21 [place] % (Auto) 15 H Eos % (Auto) 5 Baso % (Auto) 0 Neut # (Auto) 2.9 Lymph # (Auto) 1.0 [place] # (Auto) 0.7 Eos # (Auto) 0.3 Baso # (Auto) 0.0 Immature Gran # (Auto) 0.01 H Absolute Nucleated RBC 0.00 Immature Gran % 0 Nucleated RBC % 0 PT 12.0 INR 1.1 APTT 33.1 Sodium 140 Potassium 3.7 Chloride 105 Carbon Dioxide 25.0 Anion Gap 10 BUN 7 L Creatinine 1.1 Estim Creat Clear Calc 78.8 eGFR 58 L BUN/Creatinine Ratio 6 L Glucose 99 Calculated Osmolality 277 Calcium 8.6 Corrected Calcium 8.7 Phosphorus 2.9 Magnesium 1.9 Total Bilirubin 0.7 AST 24 ALT 15 Alkaline Phosphatase 73 Total Protein 6.4 Albumin 3.9 Globulin 2.5 Albumin/Globulin Ratio 1.6 Quality Measures Quality Measures sepsis Current suspected stage: ruled out Possible source: GI tract/intra- abdominal Blood cultures ordered: yes Antibiotic ordered: Yes Assessment & Plan Assessment Current Active Medications: Generic Name Dose Route Start Last Admin Trade Name Freq PRN Reason Stop Dose Admin Acetaminophen 650 mg 08/29/24 03:43 08/30/24 05:12 Acetaminophen 325 Mg Tablet PO 09/28/24 03:42 650 mg Q6H PRN Administration PAIN OR FEVER > 101 Enoxaparin Sodium 40 mg 08/29/24 09:00 08/29/24 09:23 Enoxaparin Sod Inj 40 Mg/0.4 Ml Syringe SC 09/12/24 08:59 40 mg QDAY MEG Administration Lactated Ringer's 1,000 mls @ 75 mls/hr 08/29/24 03:45 08/30/24 06:01 Lactated Ringers IV 09/28/24 03:44 75 mls/hr .[id number] MEG Administration Ciprofloxacin/Dextrose 400 mg in 200 mls @ 200 mls/hr 08/29/24 12:00 08/30/24 09:43 Cipro Ivpb IV 09/05/24 11:59 200 mls/hr Q12HR MEG Administration Metronidazole 500 mg in 100 mls @ 200 mls/hr 08/29/24 12:00 08/30/24 05:05 Flagyl 500 Mg Iv IV 09/05/24 11:59 200 mls/hr Q8HR MEG Administration Acetaminophen 1,000 mg in 100 mls @ 250 mls/hr 08/30/24 08:55 Ofirmev Inj IV 08/31/24 00:23 Q6HR PRN headache, pain, fever >101 Levothyroxine Sodium 250 mcg 09/01/24 06:00 Levothyroxine Sodium 125 Mcg Tablet PO 10/01/24 05:59 QOD@0600 MEG Levothyroxine Sodium 250 mcg/ 275 mcg 08/31/24 06:00 Levothyroxine Sodium 25 mcg PO 09/30/24 05:59 QOD@0600 [facility] Ondansetron HCl 4 mg 08/29/24 03:43 08/29/24 09:25 Ondansetron Inj 2 Mg/Ml Inj 2 Ml IVP 09/28/24 03:42 4 mg Q6H PRN Administration NAUSEA OR VOMITING Protocol Pantoprazole Sodium 40 mg 08/29/24 09:00 08/30/24 09:43 Pantoprazole Inj 40 Mg Vial IVP 09/28/24 08:59 40 mg QDAY MEG Administration Plan Assessment 59-year-old female with past medical history of Eric thyroiditis, history of previous diverticulitis was admitted for acute diverticulitis treatment at [facility]. #Acute uncomplicated diverticulitis #Abdominal pain due to above CC of abd pain, nausea, vomiting CT: Sigmoid colon wall thickening with surrounding fat stranding; no abscess or free air Started on IV fluids and empiric IV antibiotics in ED Plan -Continue with IV antibiotics (ciprofloxacin and metronidazole IV) -Transition to oral antibiotics when clinically improved -Monitor for signs of complications such as abscess, perforation, or obstruction - Advance diet to clear fluids today?monitor progression ?Patient may be able to go home within the next 24 HRS if tolerating diet and blood cultures are negative #History of E. 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 Patient counseled on importance of taking thyroid medication regularly and to check with physician if medication needs to be held for what ever reason #Thoracic aorta dilation CT abdomen 08/29/2024 showed ascending thoracic aorta 5.0 cm Patient made aware of the findings Recommended patient to f/u with vacular surgery outpatient #Bilateral renal parapelvic and parenchymal cysts?incidental findings no hydronephrosis or calculi, no need for acute intervention, outpatient follow-up with PCP or nephrology if clinically indicated #Perinephric fat stranding?likely reactive no signs of infection or obstruction, will monitor renal function #Hiatal and umbilical hernia-both small and uncomplicated, plan to monitor, surgical follow-up if symptomatic All findings are on preliminary CT scan Health Maintenance: DVT prophylaxis: Lovenox GI prophylaxis: PPI Diet: Clear fluids Lines: PIV CODE STATUS:Full code Case discussed with my attending Dr. Levon Lucas MD PGY-1 Attending Provider Attestation/Addendum I have examined the patient, reviewed labs and imaging findings, discussed the case with the resident(s), and reviewed entered orders. I agree with the plan of care as outlined in this note, with these additional summaries/recommendations: Patient seen at bedside. No acute overnight events. Patient reports improvement in abdominal pain since admission although still only tolerating clear liquid diet at this time. We will continue to advance diet as tolerated. She reports she has been hospitalized 3 times before for acute diverticulitis. Continue IV Cipro and Flagyl for acute diverticulitis. No abscess noted. Likely mild to moderate in nature. Continue pain management and bowel rest. 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 She stopped taking levothyroxine approximately 1 month ago. On admission TSH 94.35 and free T4 0.55. No evidence of myxedema coma. Resume home levothyroxine and patient counseled extensively on the importance of taking in the morning without other medications or food. Patient also found to have ascending thoracic aorta of 5.0 cm. Advised patient she should follow-up with outpatient vascular for further monitoring and management. Patient updated on the plan and in agreement. All questions answered to satisfaction. Please see residents note for additional details and management. Dr. Levon MD
--- NOTE | 2024-08-30 15:54 | PC.SS ---
Patient is a 59YO female; reason for visit: DIVERTICULITIS. Role and purpose of today's contact was explained to patient. Patient confirmed her demographic information. Patient stated her primary medical surrogate decisionmaker is her daughter Verito Ellis [phone]. Patient explained she is independent with ADLs and ambulation as well. [facility] PCP: Beatrice Raphael, last appt. was 08/26/24. Discharge plan: Home, family to transport. Next of Kin: Daughter Verito Ellis [phone].
[2024-08-30] MEDS: ACETAMINOPHEN IVPB 1,000 MG/100 ML VIAL 250 MG IV (19:09)
[2024-08-31] VITALS: BP 88/55; PULSE 89; RESP 17; TEMP 37.2; O2SAT 95
[2024-08-31 04:00] VITALS: BP 107/64; PULSE 83; RESP 17; TEMP 37.1; O2SAT 96
[2024-08-31] MEDS: LEVOTHYROXINE SODIUM 275 MCG PO (05:21)
[2024-08-31] MEDS: metroNIDAZOLE/NS 500 MG IVPB 500 MG/100 ML BAG 200 MG IV (05:22)
[2024-08-31 05:47] LABS: Basophils # (Auto) 0.0 Thou/mm3 (0.0-0.2); Basophils % (Auto) 1 % (0-2.5); Eosinophils # (Auto) 0.3 Thou/mm3 (0.0-0.5); Eosinophils % (Auto) 8 % (0-10); Hematocrit 33.1 % (36.0-46.0); Hemoglobin 10.9 g/dL (12.0-16.0); Immature Granulocytes Auto 0.01 Thou/mm3 (0.00-0.00); Lymphocytes # (Auto) 1.3 Thou/mm3 (1.0-4.8); Lymphocytes % (Auto) 42 % (10-50); Mean Corpuscular HGB Conc 32.9 g/dl (31.0-37.0); Mean Corpuscular Hemoglobin 32.0 pg (25.0-35.0); Mean Corpuscular Volume 97 fL (80-100); Monocytes # (Auto) 0.5 Thou/mm3 (0.0-0.8); Monocytes % (Auto) 15 % (0-12); Neutrophils # (Auto) 1.1 Thou/mm3 (1.8-7.7); Neutrophils % (Auto) 34 % (37-80); Nucleated Red Blood Cell # 0.00 Thou/mm3 (0.00-0.00); Nucleated Red Blood Cell % 0 /100 WBC (0); Platelet Count 118 Thou/mm3 (140-440); RDW Standard Deviation 50.5 fL (36.4-46.3); Red Blood Count 3.41 Miln/mm3 (4.00-5.20); White Blood Count 3.1 Thou/mm3 (3.6-11.0)
[2024-08-31 06:06] LABS: Alanine Aminotransferase 13 U/L (10-49); Albumin, Serum 3.6 gm/dL (3.5-5.0); Albumin/Globulin Ratio 1.5 (1.2-2.2); Alkaline Phosphatase 66 U/L (46-116); Anion Gap 9 (7-16); Aspartate Amino Transferase 22 U/L (0-34); BUN/Creatinine Ratio 7 Ratio (12-20); Bilirubin,Total 0.4 mg/dL (0.3-1.2); Blood Urea Nitrogen 6 mg/dL (9-23); Calcium 8.4 mg/dL (8.3-10.6); Calcium (Corrected) 8.7 mg/dL (8.5-10.1); Carbon Dioxide 28.1 mMol/L (20.0-31.0); Chloride 106 mMol/L (98-107); Creatinine (Component) 0.9 mg/dL (0.6-1.3); Estimated Creatinine Clearance 96.4 mL/min (>60); Globulin 2.4 gm/dL (2.3-3.5); Glucose 91 mg/dL (74-106); Magnesium 1.5 mg/dL (1.6-2.6); Osmolality,Calculated 282 (275-295); Phosphorous 2.6 mg/dL (2.4-5.1); Potassium 3.6 mMol/L (3.4-5.1); Sodium 143 mMol/L (136-145); Total Protein 6.0 gm/dL (5.7-8.2); eGFR > 60 See Note
[2024-08-31 06:37] VITALS: PULSE 75; RESP 18; RESP 96
[2024-08-31 07:45] VITALS: BP 94/67; PULSE 79; RESP 18; TEMP 36.3; O2SAT 92
[2024-08-31] MEDS: CIPROFLOXACIN/D5w 400 MG IVPB 400 MG/200 ML BAG 200 MG IV (08:14)
[2024-08-31] MEDS: Magnesium Sulfate 2 GM Ivpb 2 GM/50 ML BAG IV (10:11)
--- NOTE | 2024-08-31 10:14 | PC.NURSE ---
Discharge orders in, pending electrolyte replacement and diet advancement for lunch
[2024-08-31 12:00] VITALS: BP 100/66; PULSE 72; RESP 17; TEMP 36.3; O2SAT 92
--- NOTE | 2024-08-31 13:09 | PC.NURSE ---
Dr Lucas at bedside to assess pt after advanced diet
--- NOTE | 2024-08-31 13:28 | PC.NURSE ---
Dr Lucas back at bedside, informed pt she is able to be discharged now.
--- NOTE | 2024-08-31 13:36 | ESDS_ITS ---
<Statement entered by Mariano Casey MD - 08/31/24 17:08> I have reviewed the note and agree with the resident's assessment & plan with exceptions as below. I have personally reviewed labs, imaging, home meds/prior records, examined the patient, formulated and discussed management plan with the IM team. Patient examined at bedside today. Patient continued to improve tolerated oral diet and had improved from abdominal pain. Patient was then discharged in the hospital with the instructions listed below. She is to finish her antibiotic course of fluoroquinolone and Flagyl as prescribed. Since she was noted to have descending thoracic aorta dilatation of 5cm, she will need to follow-up with her PCP, and likely a yarn skeins examiner who will need to monitor and surveillance. Typically we would need to know what changes in size for the aorta are within 6 months and she will need to do either a CT scan of her chest or abdominal ultrasound. If there is significant change within 6 months she will need to be referred to a cardiovascular or vascular surgeon for surgical intervention. In addition, if patient is at 5.5 cm of her thoracic aorta she will need to be referred to a cardiothoracic or vascular surgeon immediately. We discussed this with the patient at length and patient was agreeable to continue to follow this up. #Acute uncomplicated diverticulitis #Abdominal pain due to above #History of E. 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 #Perinephric fat stranding #Hiatal and umbilical herni #Thoracic aorta dilation Mariano Casey, PGY-2 Internal Medicine Planned Discharge Date 08/31/24 DS: Providers Provider Date of admission: 08/29/24 03:44 Primary care physician: Beatrice Raphael PA-C Admitting Provider: Rudi Mercado DO Attending Provider on Admission: Vinicio Dos Santos MD Attending Provider on DC: Vinicio Dos Santos MD Discharging Provider: Vinicio Dos Santos MD DS: Diagnosis Problem List Completed Was Problem List Reviewed/Reconciled?: Yes Hospital Course Hospital Course Hospital course: 59-year-old female with past medical history of Eric thyroiditis, history of previous diverticulitis was admitted for acute mild to moderate diverticulitis treatment. In ED, their heart rate 124 breathing rate 22, fever 103?F, and oxygen level was 90% on room air. Patient's blood work was generally normal, including their white blood cell count and infection markers. A CT scan of the patient's abdomen and pelvis showed inflammation and thickening in the sigmoid colon, consistent with diverticulitis. In the ED, the patient received IV fluids, IV ciprofloxacin and IV metronidazole to treat the infection. In hospital blood cultures were negative after 48 hours and urine culture nega tive. Her TSH level was found to be very elevated. No evidence of myxedema coma. Patient mentioned that she would stop taking levothyroxine every now and then when taking antibiotics due to concerns regarding interaction. Patient was counseled extensively on the importance of taking in the morning without other medications or food. Incidentally CT abdomen showed thoracic aorta dilation of 5.0 cm. Patient was made aware of the findings. Recommended patient to follow- up with her primary care doctor regarding seeing a vascular surgeon outpatient. Patient to repeat TSH within 4 to 6 weeks. At time of discharge patient was stable. Patient will be taking 4 more days of oral ciprofloxacin and oral metronidazole. Discharge instructions: * Follow-up with PCP within 1-2 weeks of discharge. * Recommended repeat imaging study for aortic dissection, recommended referral to vascular/chest surgery. * Recommended endocrinology follow-up for thyroid function. * Continue taking FLAGYL and CIPROFLOXICIN as prescribed below for 5 more days. * Continue taking medications as prescribed below. * Return to Emergency Room if symptoms persist, worsen, or new symptoms develop. Admission diagnoses: #Acute uncomplicated diverticulitis #Abdominal pain due to above #History of E. coli bacteriuria(asymptomatic) #Eric thyroiditis #Thoracic aorta dilation #Hiatal and umbilical hernia- Case was discussed with my attending Dr. Dos Santos and my senior resident Dr. Carmela Lucas MD PGY1 Time Spent with Patient Time attestation: Total time spent providing and/or coordinating discharge services: Time spent: Greater than 30 minutes Exam Vital Signs Temp Pulse Resp BP Pulse Ox O2 Del Method O2 Flow Rate 97.4 F 72 17 100/66 92 L Room Air 2 08/31/24 12:08/31/24 12:08/31/24 12:08/31/24 12:08/31/24 12:08/31/24 12:08/30/24 12:00 Discharge Plan Plan Patient Disposition: HOME (Self Care) Care Plan Goals: * Follow-up with Primary Care Provider within 1-2 weeks of discharge. * Recommended repeat imaging study for aortic dissection, recommended referral to vascular/chest surgery. * Recommended endocrinology follow-up for thyroid function. * Continue taking FLAGYL and CIPROFLOXICIN as prescribed below for 5 more days. * Continue taking medications as prescribed below. * Return to Emergency Room if symptoms persist, worsen, or new symptoms develop. Prescriptions/Referrals Prescriptions/Med Rec: New metronidazole 500 mg tablet 500 mg PO Q8H 5 Days Qty: 15 0RF ciprofloxacin HCl 500 mg tablet 500 mg PO BID 5 Days Qty: 10 0RF Continued levothyroxine 200 mcg capsule 200 mcg PO QDAY Qty: 30 0RF naproxen [EC-Naprosyn] 500 mg tablet,delayed release (DR/EC) 500 mg PO BID PRN (Reason: pain) Qty: 14 0RF levothyroxine 75 mcg tablet 75 mcg PO EVERYOTHERDAY Patient Comments: TAKE 1 TABLET BY MOUTH EVERY MORNING ON EMPTY STOMACH takes with 200mg every other day (alternates with 50mcg every other day) levothyroxine 50 mcg tablet 50 mcg PO EVERYOTHERDAY Patient Comments: TAKE 1 TABLET BY MOUTH EVERY MORNING ON AN EMPTY STOMACH EVERY OTHER DAY WITH 200 MCG Zepbound 2.5 mg/0.5 mL pen injector 2.5 mg SUBCUT .weekly Patient Comments: INJECT 0.5ML SUBCUTANEOUSLY WEEKLY cholecalciferol (vitamin D3) 1,250 mcg (50,000 unit) capsule 1,250 mcg PO .weekly Patient Comments: TAKE 1 CAPSULE BY MOUTH ONE TIME PER WEEK FOR 90 DAYS Discontinued tamsulosin [Flomax] 0.4 mg capsule 0.4 mg PO QDAY Qty: 14 0RF Referrals: Beatrice Raphael PA-C [Primary Care Provider] - Patient/Caregiver Discharge Instructions Education Materials: Discharge Instructions for ... Print Language: Frisian Stand Alone Forms: [employer] Award Info., Patient Portal Info Letter Discharge Order Discharge Orders: Discharge (Routine); Ordered 08/31/24 Ordered By: Julián Hamm Quality Discharge Quality Measures VTE prophylaxis Attestestation Attestation I have examined the patient, reviewed labs and imaging findings, discussed the case with the resident(s), and reviewed entered orders. I agree with the plan of care as outlined in this note. Time Spent: [address] Levon MD
== END 2024-08-31 15:00 | disposition home or self-care (01) | DRG 244 ==
LOC: SERX 08-29 03:11 → SERHOLD 08-29 04:28 → S3SX 08-29 13:09
PROVIDERS: Student in an Organized Health Care Education/Training Program; Admitting Provider Student in an Organized Health Care Education/Training Program; Emergency Provider Emergency Medicine; PCP Physician Assistant Medical; Visit Provider Student in an Organized Health Care Education/Training Program
DX: K57.32 Diverticulitis of large intestine without perforation or abscess without bleeding (principal); E06.3 Autoimmune thyroiditis; K59.03 Drug induced constipation; R09.02 Hypoxemia; I10 Essential (primary) hypertension; K42.9 Umbilical hernia without obstruction or gangrene; I77.810 Thoracic aortic ectasia; N39.0 Urinary tract infection, site not specified; Z90.49 Acquired absence of other specified parts of digestive tract; Z90.710 Acquired absence of both cervix and uterus; Z79.890 Hormone replacement therapy; Z88.5 Allergy status to narcotic agent; B96.20 Unspecified Escherichia coli [E. coli] as the cause of diseases classified elsewhere
CPT/HCPCS: 36415; 71045; 74177; 80053; 80061; 81001; 83605; 83690; 83735; 83880; 84100; 84145; 84439; 84443; 84484; 85025; 85610; 85730; 87040; 87086; 87400; 87811; 96361; 96365; 96366; 96372; 96375; A4649; J0131; J0696; J0744; J1650; J2405; J2470; J3475; J3490; J7030; J7050; J7120; Q9967; A9270; J1836

== ENCOUNTER → 2024-08-28 | Outpatient (CLI) | payer MEDICAID, SELFPAY ==
--- NOTE | 2024-08-28 08:30 | XR_ITS ---
Examination: Screening digital mammography, bilateral Computer aided detection 3-D breast Tomosynthesis, bilateral Date and time of exam: August 28, 2024 0835 hours Compared to mammograms dating to January 29, 2017 Indication: Screening Technique: Nonmagnified MLO, CC views of the breasts to been obtained, reconstructed from 3-D Tomosynthesis images. R2 computer aided detection program utilized for evaluation of suspicious masses and/or abnormal calcifications. 3-D Tomosynthesis images obtained. Findings: Scattered areas of fibroglandular density. Benign calcifications. Suspicious for small area of architectural distortion inner left breast CC view 4.8 cm from the nipple Impression: BI-RADS Category 0: Incomplete: Need additional imaging evaluation Suspicious for small area of architectural distortion inner left breast CC view, recommend follow-up spot tomographic views inner upper quadrant left breast left breast sonography to complete the workup
== END | disposition home or self-care (01) ==
LOC: CDIM 08:27
PROVIDERS: Referring Provider Physician Assistant Medical; Visit Provider Physician Assistant Medical
DX: Z12.31 Encounter for screening mammogram for malignant neoplasm of breast (principal); R92.8 Other abnormal and inconclusive findings on diagnostic imaging of breast
CPT/HCPCS: 77063; 77067

== ENCOUNTER → 2024-10-09 | Outpatient (CLI) | payer MEDICAID, SELFPAY ==
--- NOTE | 2024-10-09 10:30 | XR_ITS ---
Examination: Breast ultrasound, unilateral, left complete Date and time of exam: October 09, 2024 1043 hours INDICATIONS: Mammogram August 28, 2024 architectural distortion inner left breast CC view Technique: Real-time humphreys scale ultrasonographic imaging performed left breast including all 4 quadrants as well as nipple retroareolar and axillary region. Findings: 11:00 cyst 6 x 5 mm No solid nodules IMPRESSION: BI-RADS Category 2: Benign findings
--- NOTE | 2024-10-09 11:00 | XR_ITS ---
Examination: Diagnostic digital mammography, unilateral, left Computer aided detection 3-D breast Tomosynthesis, unilateral Date and time of exam: October 09, 2024 1053 hours INDICATIONS: Mammogram August 28, 2024 architectural distortion inner left breast CC view Technique: Nonmagnified MLO, CC views of the left breast have been obtained, reconstructed from 3-D Tomosynthesis images. R2 computer aided detection program utilized for evaluation of suspicious masses and/or abnormal calcifications. 3-D Tomosynthesis images obtained. Findings: Scattered areas of fibroglandular density. Focal architectural distortion inner left breast remains on the spot compression CC view Impression: BI-RADS category 3: Probably benign findings One additional 6 month left mammogram follow-up is needed
== END | disposition home or self-care (01) ==
LOC: CDIM 10:20
PROVIDERS: Referring Provider Physician Assistant Medical; Visit Provider Physician Assistant Medical
DX: R92.332 Mammographic heterogeneous density, left breast (principal); N60.02 Solitary cyst of left breast
CPT/HCPCS: 76641; 77061; 77065; G0279

== ENCOUNTER → 2024-11-18 | Outpatient (CLI) | payer MEDICAID, SELFPAY ==
--- NOTE | 2024-11-18 09:30 | XR_ITS ---
Examination: CTA chest with intravenous contrast 2-D reconstructions 3-D reconstructions, vascular Date and time of exam: November 18, 2024, 10:29 AM INDICATIONS: Diagnosis aneurysm ascending thoracic aorta CTDI: vol (mGy) 23.3 DLP: (mGycm) 493 Technique: Multiple axial sections of the thorax have been obtained. 3 mm slice thickness, from below the hemidiaphragms to above the apices of the lungs. Mediastinal and lung density settings have been obtained. 2-D sagittal and coronal reconstructions. 3-D angiographic renderings, 3-D volume renderings, 3D post processing, vascular maximum intensity projections obtained. Contrast administered is 100 cc Isovue-370. Low dose protocols were performed. One or more of the following dose reduction techniques were used; automated exposure control, adjustment of the mA and/or KV according to patient size, use of iterative reconstruction technique. Findings: AP dimension ascending thoracic aorta 4.7 cm, mediolateral dimension ascending thoracic aorta 5.1 cm, AP dimension ascending thoracic aorta 2.8 cm No thoracic aortic dissection Pulmonary artery segments are not enlarged, no pulmonary artery filling defects Mild enlargement cardiac contour No mediastinal lymphadenopathy No pneumonia or pulmonary edema No visualized liver or splenic lesion Absent gallbladder No pancreatic or adrenal mass No hydronephrosis Moderate osteopenia Visualized abdominal aorta is not enlarged IMPRESSION: Ascending thoracic aortic aneurysm dilatation, AP dimension 4.7 cm lateral dimension 5.1 cm, no dissection Negative for pulmonary artery emboli
== END | disposition home or self-care (01) ==
PROVIDERS: PCP Physician Assistant Medical; Referring Provider Physician Assistant Medical; Visit Provider Physician Assistant Medical
DX: I71.21 Aneurysm of the ascending aorta, without rupture (principal)
CPT/HCPCS: 71275; A4649; Q9967